=== PATIENT | female | born 1985 | race Two or more races ===

== ENCOUNTER 2017-09-19 18:55 | Outpatient (CLI) | payer OTHER | END 2017-09-19 19:21 | disposition home or self-care (01) | LOC: RAD 18:55 | DX: M53.3 Sacrococcygeal disorders, not elsewhere classified (principal); M54.5 Low back pain; M41.115 Juvenile idiopathic scoliosis, thoracolumbar region ==

== ENCOUNTER 2019-04-30 19:13 | Outpatient (CLI) | payer OTHER | END 2019-04-30 19:57 | disposition home or self-care (01) | LOC: LAB 19:13 | DX: N20.0 Calculus of kidney (principal) ==

== ENCOUNTER 2019-05-01 09:58 | Outpatient (CLI) | payer OTHER | END 2019-05-01 10:09 | disposition home or self-care (01) | LOC: RX STUDY 09:58 | DX: N80.8 Other endometriosis (principal) ==

== ENCOUNTER 2020-04-29 11:08 | Outpatient (CLI) | payer OTHER | END 2020-04-29 12:41 | disposition home or self-care (01) | LOC: NST 11:08 | PROVIDERS: ATTEND Obstetrics & Gynecology | DX: Z34.83 Encounter for supervision of other normal pregnancy, third trimester (principal) ==

== ENCOUNTER 2020-04-29 14:24 | Inpatient (IN) | payer OTHER ==
[~2020-04-29] VITALS: Ht 154.9 cm; Wt 3.2 kg
[2020-05-22] MEDS ORDERED: PRENATAL CAPLE1 EAC1 PO (08:54)
[2020-05-22] MEDS ORDERED: FORTAMET500 MG PO (08:55)
[2020-05-22] MEDS ORDERED: LEVOTHYROXINE25 MCG PO (08:55)
== END 2020-05-26 15:25 | disposition home or self-care (01) | DRG 788 ==
LOC: LDR 05-22 07:24 → OB/GYN 05-22 15:00 → SURG-SUITE 05-23 20:39
PROVIDERS: ADMIT Obstetrics & Gynecology Maternal & Fetal Medicine; ATTEND Obstetrics & Gynecology Maternal & Fetal Medicine
PROC: 10D00Z1 Extraction of Products of Conception, Low, Open Approach (ICD-10-PCS; principal; 2020-05-23 19:00)
DX: O62.1 Secondary uterine inertia (principal); Z3A.40 40 weeks gestation of pregnancy; Z37.0 Single live birth; Z20.828 Contact with and (suspected) exposure to other viral communicable diseases

== ENCOUNTER → 2020-05-14 | Outpatient (CLI) | payer OTHER ==
[~2020-05-14] MED LIST: FORTAMET500 MG PO; LEVOTHYROXINE25 MCG PO; PRENATAL CAPLE1 EAC1 PO
== END | disposition home or self-care (01) ==
LOC: NST 14:14
PROVIDERS: ATTEND Obstetrics & Gynecology Maternal & Fetal Medicine
DX: Z34.83 Encounter for supervision of other normal pregnancy, third trimester (principal)